=== PATIENT | female | born 1965 | race Caucasian/White ===

== ENCOUNTER 2019-11-01 07:13 | Observation (INO) | payer BC ==
[~2019-11-01 07:13] MED LIST: Buffered Lidocaine 1% SYRIN* 1 ML/SYRINGE INTRADERM ONE; Lactated Ringers 1000 ML Bag* 1,000 ML IV SCH
[2019-11-01] MEDS ORDERED: Lidocaine 2.5%/Prilocain 2.5%* 5 GM TUBE ONE ×2 (07:24→07:31)
[2019-11-01] MEDS ORDERED: Buffered Lidocaine 1% SYRIN* 1 ML/SYRINGE INTRADERM ONE (07:25)
[2019-11-01] MEDS ORDERED: ceFAZolin 2 GM PREMIX in ORs 2 GM/50 ML BAG ONE ×2 (10:26→17:21)
[2019-11-01] MEDS ORDERED: Bupivacaine 0.25% SDV* 30 ML ONE (13:12)
[2019-11-01] MEDS ORDERED: fentaNYL* 50 MCG/ML 2 ML VIAL (100 MCG VIAL) ONE ×6 (13:45→19:22)
[2019-11-01] MEDS ORDERED: Midazolam* 1 MG/ML 5 ML VIAL (5 MG) ONE (13:49)
[2019-11-01] MEDS ORDERED: Glycopyrrolate IV* 0.2 MG/ML 1 ML VIAL ONE ×2 (14:03→17:48)
[2019-11-01] MEDS ORDERED: Succinylcholine* 20 MG/ML 10 ML VIAL ONE (14:03)
[2019-11-01] MEDS ORDERED: Propofol* 10 MG/ML 20 ML BTL ONE (14:03)
[2019-11-01] MEDS ORDERED: Rocuronium* 10 MG/ML VIAL ONE ×2 (14:04→15:03)
[2019-11-01] MEDS ORDERED: Phenylephrine 40 MCG/ML SYRINGE ONE (14:22)
[2019-11-01] MEDS ORDERED: Ondansetron INJ* 2 MG/ML VIAL ONE (14:56)
[2019-11-01] MEDS ORDERED: Dexamethasone IV* 4 MG/ML 1 ML (4 MG) ONE (14:56)
[2019-11-01] MEDS ORDERED: Neostigmine Methylsulfate* 3 MG/3 ML SYRINGE ONE (17:48)
[2019-11-01] MEDS ORDERED: PROCHLORPERAZINE INJ 5 MG/ML 2 ML VIAL IV PRN (18:17)
[2019-11-01] MEDS ORDERED: oxyCODONE/Acetamin 5/325 MG* TAB PO PRN (18:17)
[2019-11-01] MEDS ORDERED: DiMENhydriNATE IV* 50 MG/ML VIAL IV PUSH PRN (18:17)
[2019-11-01] MEDS ORDERED: Naloxone* 0.4 MG/ML 1 ML VIAL IV PRN (18:17)
[2019-11-01] MEDS ORDERED: HYDROcodone/ACETAMIN 5-325 MG* 1 TAB PO PRN (18:17)
[2019-11-01] MEDS ORDERED: HYDROmorphone INJ* 0.5 MG/0.5 ML SYRINGE IV SLOW PU PRN (18:18)
[2019-11-01] MEDS ORDERED: Ketorolac INJ* 15 MG/ML 1 ML VIAL IV PUSH PRN (18:18)
[2019-11-01] MEDS ORDERED: Ibuprofen TAB* 600 MG PO PRN (18:18)
[2019-11-01] MEDS ORDERED: Acetaminophen TAB* 325 MG PO PRN (18:18)
[2019-11-01] MEDS ORDERED: Ondansetron INJ* 2 MG/ML VIAL IV PRN (18:18)
--- NOTE | 2019-11-01 18:18 | BRIEFOPN ---
Brief Operative/Procedure Note - Operation Details Pre-Op Diagnosis: Right breast cancer Post-Op Diagnosis: Right breast cancer Procedures: Bilateral mastectomy and bilateral sentinel lymph node biopsy Surgeon(s)/Proceduralists: Dr. Vicente. Assist: Narda Cardoza, Juan R CAMPOS Anesthesia: GETA Estimated Blood Loss: <25cc Findings: As above Specimen(s)/Culture(s) Description: Left and right breasts, left and right sentinel lymph nodes. Complications: None
[2019-11-01] MEDS ORDERED: Pantoprazole TAB * 40 MG TAB PO PRN (18:25)
[2019-11-01] MEDS ORDERED: Zolpidem TAB* 5 MG PO PRN (18:26)
[2019-11-01] MEDS ORDERED: NS 0.9% 1000 ML** 1,000 ML IV SCH (18:30)
[2019-11-01] MEDS: fentaNYL* 50 MCG/ML 2 ML VIAL (100 MCG VIAL) IV PRN ×4 (18:53→19:37)
[2019-11-01] MEDS ORDERED: HYDROcodone/ACETAMIN 5-325 MG* 1 TAB ONE (19:20)
--- NOTE | 2019-11-01 19:49 | OP ---
DATE OF OPERATION: 11/01/19 - ROOM #333 DATE OF : 69 SERVICE: General Surgery. SURGEON: Briana Vicente MD ASSISTANTS: Alicia Doherty MD; BETH Grubbs; BETH Abreu PRE-OP DIAGNOSIS: Right breast cancer. POST-OP DIAGNOSIS: Right breast cancer. OPERATIVE PROCEDURE: Bilateral mastectomy and bilateral sentinel lymph node biopsy. SPECIMENS: Right breast and left breast, right axilla sentinel lymph nodes #1 through 4 and left axilla sentinel lymph nodes #1 through 3. ESTIMATED BLOOD LOSS: Approximately 150 cc. COMPLICATIONS: None. INDICATIONS FOR SURGERY: Ms. Mendoza is a very pleasant 54-year-old female who was recently diagnosed with right breast multifocal invasive ductal adenocarcinoma. She wished to undergo bilateral mastectomy with sentinel lymph node biopsy. She understood that the risks included, but were not limited to bleeding, infection, injury to nearby structures. She understood the alternatives and benefits and she wished to proceed. DESCRIPTION OF PROCEDURE: The patient was brought back to the operating room and placed on the operating table in the supine position. Sequential compression devices were placed on the bilateral lower extremities for DVT prophylaxis. Antibiotics were administered. General endotracheal anesthesia was induced and the patient's bilateral breasts were prepped and draped in normal sterile fashion. Prior to beginning the surgery, a time-out was performed verifying the patient's name, date of , and the procedure to be performed. Attention was turned towards the right breast given that this was the side with the malignancy. An elliptical incision was then made around the nipple-areolar complex. The skin was divided down to the subcutaneous tissue and a subcutaneous plane was developed superiorly between the subcutaneous tissue and the breast tissue. This plane was carried all the way superiorly towards the patient's clavicle where at that point it was carried down towards the fascia of the pectoralis muscle. Medially, it was carried towards the lateral border of the sternum. Inferiorly, her inferior flap was carried down towards the inframammary fold, which had been previously marked. Laterally, the breast tissue was taken down towards the latissimus muscle. Once all this was done, the breast tissue was taken off of the pectoralis muscle including the pectoralis fascia towards the axilla. At this point, the right breast tissue was only tethered by the right axillary contents; therefore, sentinel lymph node biopsies were performed. Four sentinel lymph node biopsies were identified. They all 4 were dissected out and then the lymph nodes were dissected out and clamped on their pedicles. The sentinel lymph node #1 had an in situ count of 4054 and an ex vivo count of 4049. [place] lymph node #2 had an in situ count of 149 and an ex vivo count of 98, #3 had an in situ count of 142 and an ex vivo count of 76, #4 had an in situ count of 640 and an ex vivo count of 688. After the sentinel lymph node biopsy was completed, the axillary bed count was less than 10. At this point, the breast was divided at the axillary tissue and it was marked with the usual markings and was carried off the table as specimen. During this dissection, 2 small superficial sotomayor were made in the skin because the dermis was tethered. Next, hemostasis was obtained in the chest cavity and attention was turned towards closure. Dr. Doherty performed closure on the sidewall. I proceeded towards performing left mastectomy. The closure on the right side was proceeded as follows: The skin was closed using interrupted 3-0 Vicryl sutures and the skin was closed using a running 4-0 Monocryl suture. Sterile dressings were then placed. In a similar fashion, the left simple mastectomy was performed. An elliptical incision was then made around the nipple-areolar complex. The skin was divided down to the subcutaneous tissue and then the superior flap was developed removing the breast tissue all the way up to the clavicle. Medially, the medial border was the lateral border of the sternum; inferiorly, the border was the inframammary fold; and then laterally, the breast tissue was divided all the way down towards the latissimus. Once these borders were developed, the breast tissue was then taken off the pectoralis major muscle at the fascia until the breast tissue was simply tethered at the axilla. Then, the sentinel lymph node biopsy was performed. The left axillary sentinel lymph nodes were as follows: [place] lymph node #1 had an in situ count of 1713, ex vivo count of 2049. [place] lymph node #2 had an in situ count of 43, and an ex vivo count of 52. [place] lymph node #3 had an in situ count of 597 and an ex vivo count of 606 and the axillary bed count was 4. After this was completed, the entire breast tissue on the left side was then taken off at the axillary contents. It was marked with the usual sutures and it was carried off the table as specimen. Of note, on the right side, an additional anterior-inferior border was taken off of the inferior flap. Additional tissue was also taken off of the inferior flap to make the flaps a little bit flatter. After this was done, hemostasis was obtained in the left chest cavity. After this, the subdermal layer was closed using interrupted 3-0 Vicryl sutures. The skin was closed using a running 4-0 Monocryl suture and sterile dressings were then placed. Of note, 2 MIKEY drains were placed through the inframammary folds on both sides. Local anesthesia was also infiltrated through these MIKEY drains and then they were connected to their bulbs. Also of note, the patient did have a Murray catheter placed prior to surgery and then at the end of the case, her Murray catheter was removed. At the end of the case, all counts were correct and I was present during the entirety of the case. [id number]/[facility] #: [id number] JOHAN
[2019-11-01] MEDS: Heparin VIAL(*) 5000 UNITS/ML VIAL (FIVE THOUSAND) SUBCUT SCH (21:52)
[2019-11-01] MEDS ORDERED: CMCS:Atomoxetine(NF) 25 MG CAP PO SCH (23:00)
[2019-11-02] MEDS: Heparin VIAL(*) 5000 UNITS/ML VIAL (FIVE THOUSAND) SUBCUT SCH (05:44)
[2019-11-02 07:31] VITALS: BP 99/51
--- NOTE | 2019-11-02 08:26 | PN ---
Progress Note - Progress Note Date of Service: 11/02/19 Note: Surgery Progress Note S: Patient is doing well. She complains of some soreness and had difficulty sleeping last night. O: Vital Signs - 24 hr 11/01/19 11/01/19 11/01/19 18:40 18:41 18:45 Temperature 98.1 F Pulse Rate 91 97 95 Respiratory 14 28 Rate Blood Pressure 116/56 138/82 (mmHg) O2 Sat by Pulse 99 99 99 Oximetry 11/01/19 11/01/19 11/01/19 18:50 18:53 18:55 Temperature Pulse Rate 88 78 Respiratory 12 16 9 Rate Blood Pressure 139/57 118/70 (mmHg) O2 Sat by Pulse 100 96 Oximetry 11/01/19 11/01/19 11/01/19 19:00 19:10 19:15 Temperature Pulse Rate 73 75 Respiratory 10 16 12 Rate Blood Pressure 138/53 133/73 (mmHg) O2 Sat by Pulse 98 98 Oximetry 11/01/19 11/01/19 11/01/19 19:24 19:30 19:37 Temperature Pulse Rate 102 Respiratory 18 15 18 Rate Blood Pressure 123/65 (mmHg) O2 Sat by Pulse 100 Oximetry 11/01/19 11/01/19 11/01/19 19:45 19:55 20:06 Temperature 97.6 F Pulse Rate 86 78 Respiratory 9 17 17 Rate Blood Pressure 135/66 141/60 (mmHg) O2 Sat by Pulse 98 100 Oximetry 11/01/19 11/01/19 11/01/19 21:00 22:00 23:57 Temperature 97.6 F 98.5 F 98.0 F Pulse Rate 76 89 95 Respiratory 16 17 17 Rate Blood Pressure 128/65 146/65 113/65 (mmHg) O2 Sat by Pulse 100 100 98 Oximetry 11/02/19 11/02/19 11/02/19 02:16 03:56 07:30 Temperature 98.3 F 97.3 F 97.2 F Pulse Rate 77 78 114 Respiratory 16 16 16 Rate Blood Pressure 128/50 101/56 99/51 (mmHg) O2 Sat by Pulse 97 98 99 Oximetry Laboratory Results - last 24 hr 11/02/19 04:28 POC Glucose (mg/dL) 143 H Intake & Output 11/01/19 11/02/19 11/02/19 22:59 06:59 14:59 Intake Total 3220 530 Output Total 2765 835 Balance 455 -305 Intake: IV Fluids 3100 LR 3100 Oral 120 530 Output: MIKEY #1 135 140 MIKEY #2 130 95 Urine 250 600 Murray 2100 Estimated Blood Loss 150 Other: Estimated Void Large # Voids 1 Physical exam: Chest wall- steristrips in place over bilateral mastectomy incisions. Clean/dry /intact. On the left axilla there is some swelling with bruising, possibly from a hematoma; MIKEY x 2 with sero-sanguinous fluid A/P: 54 F with right breast cancer, POD 1 from bilateral mastectomies and bilateral sentinal lymph node biopsies. - DC home today - MIKEY drain teaching - Patient will follow up with me for a virtual visit and will return to office when MIKEY < 30 cc/24 hours for removal.
[2019-11-02] MEDS ORDERED: Diltiazem CD CAP* 120 MG PO SCH (09:00)
--- NOTE | 2019-11-02 15:59 | DS ---
Discharge Summary Surgeon: Jules HASSAN Admit Date:11/01/2019 Discharge Date:11/02/2019 Admission DX:Right Breast Cancer Discharge DX:Right Breast Cancer Condition at Discharge:Stable Date of D/C PEX: Physical exam: Chest wall- steristrips in place over bilateral mastectomy incisions. Clean/dry /intact. On the left axilla there is some swelling with bruising, possibly from a hematoma; MIKEY x 2 with sero-sanguinous fluid Procedures Performed:Bilateral Mastectomies with Fidelity Node Biopsy Hospital Course:Patient admitted for above procedure on 11/01/19, tolerated well and was then transferred to the surgical aponte for post operative care. Post operative night was uneventful,pain was well controlled. Patient was instructed in MIKEY care and Management, Dr Vicente examined the incisions. Patient was d/c'd home in stable condition Discharge instructions were given to the patient regarding Diet, Medications, Activity, and post operative Follow up. All Questions were answered. Discharged Home in Stable Condition on 11/02/2019
== END 2019-11-02 11:40 | disposition home or self-care (01) ==
LOC: SDS 07:13 → INTOOBSV 18:18 → SSU 18:18
PROVIDERS: ADMIT Surgery; ATTEND Surgery
DX: C50.911 Malignant neoplasm of unspecified site of right female breast (principal); Z87.891 Personal history of nicotine dependence; Z79.899 Other long term (current) drug therapy; F32.9 Major depressive disorder, single episode, unspecified; Z86.19 Personal history of other infectious and parasitic diseases
CPT/HCPCS: 78195; 88305; 88307; 88342; 96374; A9270-GY; A9541; G0378; J0330; J0690; J1100; J1644; J1885; J2250; J2405; J2704; J2710; J3010; J3490